=== PATIENT | male | born 1975 | race Hispanic/Latino ===

== ENCOUNTER 2024-04-17 16:33 | Emergency (ER) | payer BC, OTHER ==
[2024-04-17] MEDS ORDERED: Boostrix 0.5 ML (Tdap) VIAL (>/=7 yrs of age) ONE (16:49)
== END 2024-04-17 17:28 | disposition home or self-care (01) ==
LOC: NAV ERS 16:33
DX: S61.211A Laceration without foreign body of left index finger without damage to nail, initial encounter (principal); W25.XXXA Contact with sharp glass, initial encounter; Z55.6 Problems related to health literacy; Z23 Encounter for immunization
CPT/HCPCS: 12001; 90471; 90715